=== PATIENT | male | born 2000 | race Caucasian/White ===

== ENCOUNTER 2020-05-11 13:46 | Emergency (ER) | payer OTHER ==
[~2020-05-11] VITALS: Ht 182.9 cm; Wt 77.1 kg
[2020-05-11] MEDS ORDERED: IBUPROFEN 600600 M1 PO (15:54)
[2020-05-11 16:09] VITALS: BP 140/82
== END 2020-05-11 16:10 | disposition home or self-care (01) ==
LOC: M.ERS 13:46
DX: S80.212A Abrasion, left knee, initial encounter (principal); W22.8XXA Striking against or struck by other objects, initial encounter; Y93.89 Activity, other specified; Y92.89 Other specified places as the place of occurrence of the external cause; Y99.8 Other external cause status